=== PATIENT | female | born 1980 | race Two or more races ===

== ENCOUNTER → 2020-07-15 | Day surgery (SDC) | payer OTHER ==
[~2020-07-15] MED LIST: CLONAZEPAM0.25 MG PO; FLONASE16 GM; PROZAC20 MG PO
== END | disposition home or self-care (01) ==
LOC: ADM 07-14 10:30 → CIR.AMB 05:59
PROVIDERS: ATTEND Plastic Surgery
DX: L98.7 Excessive and redundant skin and subcutaneous tissue (principal); Z20.822 Contact with and (suspected) exposure to COVID-19